=== PATIENT | female | born 1970 | race Caucasian/White ===

== ENCOUNTER → 2017-02-23 | Outpatient (REF) | payer BC ==
[2017-02-28 00:06] LABS: ENDOMYSIAL ABY IgA Negative (Negative); TISSUE TRANSGLUTAMINASE IgG 5 U/mL (0-5)
== END ==
LOC: M LABDRAW1 16:52
PROVIDERS: ATTEND Internal Medicine Gastroenterology
DX: R10.12 Left upper quadrant pain (principal); R19.7 Diarrhea, unspecified; R68.89 Other general symptoms and signs

== ENCOUNTER → 2018-03-15 | Outpatient (REF) | payer BC ==
[2018-03-16 07:30] LABS: MISCELLANEOUS TEST LAB See Separate Report
== END ==
LOC: M LABDRAW1 16:00
DX: R19.7 Diarrhea, unspecified (principal); R14.3 Flatulence; K90.0 Celiac disease

== ENCOUNTER → 2018-06-27 | Outpatient (REF) | payer BC ==
[2018-06-30 00:06] LABS: F002-IgE Milk < 0.10 kU/L (Class 0); F004-IgE Wheat < 0.10 kU/L (Class 0); F013-IgE Peanut < 0.10 kU/L (Class 0); F014-IgE Soybean < 0.10 kU/L (Class 0); F026-IgE Pork < 0.10 kU/L (Class 0); F027-IgE Beef < 0.10 kU/L (Class 0); F245-IgE Egg, Whole < 0.10 kU/L (Class 0); FX02-IgE Food Mix (Sea Foods) Negative (.)
== END ==
LOC: M LABDRAW1 09:35
DX: R19.7 Diarrhea, unspecified (principal); R12 Heartburn
CPT/HCPCS: 86003

== ENCOUNTER → 2019-10-01 | Outpatient (REF) | payer BC ==
[2019-10-04 14:12] LABS: HPV HYBRID CAPTURE II Negative (Negative)
== END ==
LOC: M LAB LCGH 12:46
PROVIDERS: ATTEND Nurse Practitioner Adult Health
DX: Z12.4 Encounter for screening for malignant neoplasm of cervix (principal)
CPT/HCPCS: 87624; G0123

== ENCOUNTER → 2020-05-12 | Outpatient (CLI) | payer BC ==
[2020-05-12 11:58] LABS: FERRITIN 107 NG/ML (8-252); IRON (FE) 67 UG/DL (50-170)
[2020-05-12 14:00] LABS: VITAMIN B12 LEVEL 511 PG/ML (247-911)
== END ==
LOC: M PLALAB 08:02
PROVIDERS: ATTEND Physician Assistant
DX: D53.9 Nutritional anemia, unspecified (principal); R21 Rash and other nonspecific skin eruption

== ENCOUNTER → 2020-11-27 | Outpatient (CLI) | payer BC ==
[2020-11-28 06:08] LABS: HSV TYPE I IgG SPECIFIC <0.91 index (0.00-0.90); HSV TYPE II IgG SPECIFIC >23.60 index (0.00-0.90)
== END ==
LOC: M WUC 10:11
PROVIDERS: ATTEND Physician Assistant
DX: B02.9 Zoster without complications (principal)

== ENCOUNTER → 2024-10-01 | Outpatient (CLI) | payer OTHER | LOC: M WUC 15:43 | PROVIDERS: ATTEND Physician Assistant | DX: J32.9 Chronic sinusitis, unspecified (principal) ==

== ENCOUNTER 2025-02-03 10:52 | Emergency (ER) | payer OTHER ==
[~2025-02-03] VITALS: Ht 160 cm; Wt 53.6 kg
[2025-02-03 11:37] LABS: BASO % 0.2 % (0.0-1.0); EOS % 0.1 % (0.0-3.0); HEMATOCRIT 37.5 % (36.0-47.0); HEMOGLOBIN 12.6 g/dl (12.0-15.5); LYMPH # 1.1 10^3/uL (1.5-5.0); LYMPH % 11.5 % (24.0-44.0); MEAN CORPUSCULAR HEMOGLOBIN 31.3 pg (27.0-33.0); MEAN CORPUSCULAR HGB CONC 33.6 g/dl (32.0-36.5); MEAN CORPUSCULAR VOLUME 93.1 fl (80.0-96.0); MONO # 0.3 10^3/uL (0.0-0.8); MONO % 3.2 % (2.0-8.0); NEUTROPHILS # 7.9 10^3/uL (1.5-8.5); NEUTROPHILS % 84.8 % (36.0-66.0); PLATELET COUNT, AUTOMATED 276 10^3/uL (150-450); RED BLOOD COUNT 4.03 10^6/uL (4.00-5.40); WHITE BLOOD COUNT 9.3 10^3/uL (4.0-10.0)
[2025-02-03 12:03] LABS: CK-MB VALUE MASS 1.6 NG/ML (<3.6)
[2025-02-03 12:04] LABS: CPK CREATINE PHOSPHOKINASE 137 U/L (34-145); MB/CK RELATIVE INDEX 1.16 (< OR =4)
[2025-02-03 12:09] LABS: LIPASE 27 U/L (12-53)
[2025-02-03 12:11] LABS: ALBUMIN 3.9 G/DL (3.2-5.2); ALKALINE PHOSPHATASE 29 U/L (35-104); ALT/SGPT 20 U/L (7.0-40); AST/SGOT 20 U/L (<34); BILIRUBIN,DIRECT 0.1 MG/DL (<0.4); BILIRUBIN,TOTAL 0.6 MG/DL (0.3-1.2); BLOOD UREA NITROGEN 19 MG/DL (9-23); CALCIUM LEVEL 9.5 MG/DL (8.5-10.1); CARBON DIOXIDE LEVEL 28 MMOL/L (20-31); CHLORIDE LEVEL 103 MMOL/L (98-107); CREATININE FOR GFR 0.59 MG/DL (0.55-1.30); GLOMERULAR FILTRATION RATE > 60.0 (>51); GLUCOSE, FASTING 118 MG/DL (60-100); POTASSIUM SERUM 4.2 MMOL/L (3.5-5.1); SODIUM LEVEL 140 MMOL/L (136-145); TOTAL PROTEIN 6.7 G/DL (5.7-8.2)
[2025-02-03] MEDS ORDERED: ISOVUE-370 76% 100ML VIAL As Ordered ONE (12:15)
[2025-02-03 13:07] LABS: CK-MB VALUE MASS 1.5 NG/ML (<3.6)
[2025-02-03 13:48] LABS: MB/CK RELATIVE INDEX 1.16 (< OR =4)
[2025-02-03] MEDS ORDERED: OMEP-173 PO (13:58)
[2025-02-03 14:39] VITALS: BP 123/62; TEMP 98; O2SAT 98
== END 2025-02-03 14:46 | disposition home or self-care (01) ==
LOC: EDBD 10:52 → M ED 10:52
DX: R07.9 Chest pain, unspecified (principal); R00.1 Bradycardia, unspecified; K21.9 Gastro-esophageal reflux disease without esophagitis; K58.9 Irritable bowel syndrome, unspecified; F41.9 Anxiety disorder, unspecified; Z79.899 Other long term (current) drug therapy
CPT/HCPCS: 36415; 71045; 71275; 80048; 80076; 82550; 82553; 83690; 84484; 85025; 93005; 93041; 94760; 99285; Q9967